=== PATIENT | female | born 1975 | race Caucasian/White ===

== ENCOUNTER 2017-07-13 13:55 | Emergency (ER) | payer OTHER ==
[2017-07-13 14:01] VITALS: BMI 36.6
--- NOTE | 2017-07-13 14:09 | PDOC ---
History of Present Illness - General History Source: Patient Exam Limitations: No Limitations - History of Present Illness Initial Comments: 07/13/17 14:16 The patient is a 41 year old female, with a significant past medical history of asthma and anemia, who presents to the emergency department with headache, dizziness, blurry vision and nausea for about 2 weeks. The patient reports her headache has been getting progressively worse since its onset. She reports her headache is localized mostly on the right side of her head, and often made worse in the morning. She reports her headache often inhibits her from daily activities, like working. She also has complaints of bilateral flank pain and back pain. She reports her back pain is often made worse when she bends down or with much activity. She notes having similar symptoms in the past, which seemed to resolve with steroids. She denies recent fevers, chills. She denies recent vomit, diarrhea or constipation. Allergies: NKA Past surgical history: Tubal ligation Social history: Nonsmoker. Denies EtOH use and recreational drug use. <Tiburcio Bear - Last Filed: 07/13/17 14:22> <Donna Valente - Last Filed: 07/13/17 20:54> - General Chief Complaint: Headache Stated Complaint: HEADACHE Time Seen by Provider: 07/13/17 14:09 Past History <Tiburcio Bear - Last Filed: 07/13/17 14:22> - Past Medical History Anemia: Yes COPD: No - Suicide/Smoking/Psychosocial Hx Smoking History: Never smoked Have you smoked in the past 12 months: No Information on smoking cessation initiated: No Hx Alcohol Use: No Drug/Substance Use Hx: No Substance Use Type: None <Donna Valente - Last Filed: 07/13/17 20:54> - Past Medical History Allergies/Adverse Reactions: Allergies Allergy/AdvReac Type Severity Reaction Status Date / Time No Known Allergies Allergy Verified 07/13/17 13:57 Home Medications: Ambulatory Orders Acetaminophen [Tylenol] 650 mg PO ASDIR 07/13/17 Ferrous Sulfate 325 mg PO DAILY 07/13/17 Review of Systems - Review of Systems Able to Perform ROS?: Yes Comments:: 07/13/17 14:17 GENERAL/CONSTITUTIONAL: No fever or chills. No weakness. HEAD, EYES, EARS, NOSE AND THROAT: No change in vision. No ear pain or discharge. No sore throat. CARDIOVASCULAR: No chest pain or shortness of breath. RESPIRATORY: No cough, wheezing, or hemoptysis. GASTROINTESTINAL: +nausea No vomiting, diarrhea or constipation. GENITOURINARY: No dysuria, frequency, or change in urination. MUSCULOSKELETAL: No joint or muscle swelling or pain. +back and flank pain. SKIN: No rash NEUROLOGIC: +headache and dizziness No vertigo, loss of consciousness, or change in strength/sensation. ENDOCRINE: No increased thirst. No abnormal weight change. HEMATOLOGIC/LYMPHATIC: No anemia, easy bleeding, or history of blood clots. ALLERGIC/IMMUNOLOGIC: No hives or skin allergy. <Tiburcio Bear - Last Filed: 07/13/17 14:22> *Physical Exam - Vital Signs Last Vital Signs Temp Pulse Resp BP Pulse Ox 99 F 93 H 18 134/91 99 07/13/17 13:55 07/13/17 13:55 07/13/17 13:55 07/13/17 13:55 07/13/17 13:55 - Physical Exam Comments: 07/13/17 14:22 GENERAL: Awake, alert, and fully oriented, in no acute distress HEAD: No signs of trauma EYES: PERRLA, EOMI, sclera anicteric, conjunctiva clear ENT: Auricles normal inspection, hearing grossly normal, nares patent, Tonsillar hypertrophy with exudates on the right side. . Moist mucosa NECK: Normal ROM, supple, no lymphadenopathy, JVD, or masses LUNGS: Decreased air entry bilaterally. . No wheezes, and no crackles HEART: Regular rate and rhythm, normal S1 and S2, no murmurs, rubs or gallops ABDOMEN: Soft, nontender, normoactive bowel sounds. No guarding, no rebound. No masses MUSCULOSKELETAL: No midline tenderness. No CVA tenderness. NEUROLOGICAL: Cranial nerves II through XII grossly intact. Normal speech, normal gait SKIN: Warm, Dry, normal turgor, no rashes or lesions noted. <Tiburcio Bear - Last Filed: 07/13/17 14:22> - Vital Signs Last Vital Signs Temp Pulse Resp BP Pulse Ox 99 F 93 H 18 134/91 99 07/13/17 13:55 07/13/17 13:55 07/13/17 13:55 07/13/17 13:55 07/13/17 13:55 <Donna Valente - Last Filed: 07/13/17 20:54> Medical Decision Making - Medical Decision Making CTH obtained, as patient has been having AM headaches. No acute findings. She has not had fever, chills, nuchal rigidity, and does not have any neuro deficits. Also obtained CXR as she mentioned recent respiratory symptoms. No acute findings as well. Treated with nebs, analgesics with improvement. Headache did not completely resolve, therefore gave her a dose of decadron in ED. Recommended outpatient neuro f/u. <Donna Valente - Last Filed: 07/13/17 20:54> *DC/Admit/Observation/Transfer - Attestations Scribe Attestion: 07/13/17 14:18 Documentation prepared by Tiburcio Bear, acting as medical office manager for Donna Valente MD. <Tiburcio Bear - Last Filed: 07/13/17 14:22> - Discharge Dispostion Admit: No <Donna Valente - Last Filed: 07/13/17 20:54> Diagnosis at time of Disposition: Headache Qualifiers: Headache type: unspecified Headache chronicity pattern: episodic headache Intractability: not intractable Qualified Code(s): R51 - Headache - Discharge Dispostion Disposition: HOME Condition at time of disposition: Stable - Referrals Referrals: Jt Landaverde MD [Staff Physician] - - Patient Instructions Printed Discharge Instructions: DI for Headache
[2017-07-13] MEDS ORDERED: ALBUTEROL SO4 2.5/IPRATROPIUM 0.5 INH SOL 3 ML VIAL.NEB. NEB ONE ×2 (14:24→14:25)
[2017-07-13] MEDS: ALBUTEROL SO4 2.5/IPRATROPIUM 0.5 INH SOL 3 ML VIAL.NEB. NEB SCH ×2 (14:29→14:57)
[2017-07-13 14:35] LABS: URINE APPEARANCE Clear; URINE BILIRUBIN Negative (NEGATIVE); URINE GLUCOSE (UA) Negative (NEGATIVE); URINE KETONE Negative (NEGATIVE); URINE NITRITE Negative (NEGATIVE); URINE PROTEIN Negative (NEGATIVE); URINE UROBILINOGEN 0.2 (0.2-1.0)
[2017-07-13 14:36] LABS: URINE BLOOD Trace-intact (NEGATIVE); URINE COLOR YELLOW
[2017-07-13] MEDS ORDERED: IBUPROFEN 600 MG TABLET (FP) PO ONE ×2 (14:50→14:52)
[2017-07-13 14:57] LABS: URINE WBC 0-2 (0-5)
[2017-07-13 14:58] LABS: AMORP URATES FEW /hpf (NONE SEEN); EPI CELLS MODERATE /HPF; URINE BACTERIA FEW /hpf (NEGATIVE)
[2017-07-13] MEDS ORDERED: ACETAMINOPHEN 325 MG TABLET (FP) ONE (15:53)
[2017-07-13] MEDS ORDERED: ACETAMINOPHEN 325 MG TABLET (FP) PO ONE (15:53)
[2017-07-13] MEDS ORDERED: DEXAMETHASONE SOD PHOSPHATE 10 MG/1 ML VIAL IVPUSH ONE (16:06)
[2017-07-13] MEDS ORDERED: DEXAMETHASONE SOD PHOSPHATE 10 MG/1 ML VIAL ONE (16:22)
[2017-07-13 16:36] VITALS: BP 147/85; PULSE 76; TEMP 98.2
== END 2017-07-13 16:30 | disposition home or self-care (01) ==
LOC: FER 13:55
PROC: 3E0F7GC Introduction of Other Therapeutic Substance into Respiratory Tract, Via Natural or Artificial Opening (ICD-10-PCS; principal; 2017-07-13)
PROC: 3E033GC Introduction of Other Therapeutic Substance into Peripheral Vein, Percutaneous Approach (ICD-10-PCS; 2017-07-13)
DX: R51 Headache (principal); D64.9 Anemia, unspecified
CPT/HCPCS: 70450-TC; 71046-TC; 81003; 81015; 84703; 87070; 87430; 99284-25

== ENCOUNTER 2017-07-25 00:12 | Emergency (ER) | payer OTHER ==
[2017-07-25 01:29] VITALS: BP 141/84; PULSE 105; TEMP 98.7; BMI 35.9
--- NOTE | 2017-07-25 02:20 | PDOC ---
History of Present Illness - General History Source: Patient Exam Limitations: No Limitations - History of Present Illness Initial Comments: 07/25/17 02:25 The patient is a 41 year old female with a significant PMH of asthma and past pneumonia who presents to the emergency department with cold-like symptoms including body aches, sore throat, chest pain, earache, and headache beginning approximately 1 day ago. The patient describes her headache as a tension like squeezing sensation bilaterally. The patient was evaluated for a headache on 07/[address] which was negative, but she notes this headache is different from then. She describes her cough as occasionally productive of yellow sputum which exacerbates her chest pain. The patient denies sick contacts or recent travel. She denies ear or nasal drainage. The patient denies shortness of breath, and dizziness. Denies fever, chills, nausea, vomit, diarrhea and constipation. Denies dysuria, frequency, urgency and hematuria. Allergies: NKA Past surgical history: Tubal ligation. Social history: No reported cigarette, alcohol, or drug use. PCP: Not on Staff. <Reg James - Last Filed: 07/25/17 02:29> - General History Source: Patient <DerrickEdward lu - Last Filed: 07/25/17 03:28> - General Chief Complaint: Sore Throat Stated Complaint: BODY ACHES,SORE THROAT Time Seen by Provider: 07/25/17 01:32 Past History <Reg James - Last Filed: 07/25/17 02:29> - Past Medical History Anemia: Yes COPD: No - Suicide/Smoking/Psychosocial Hx Smoking History: Never smoked Have you smoked in the past 12 months: No Information on smoking cessation initiated: No Hx Alcohol Use: No Drug/Substance Use Hx: No Substance Use Type: None <Edward Seals - Last Filed: 07/25/17 03:28> - Past Medical History Allergies/Adverse Reactions: Allergies Allergy/AdvReac Type Severity Reaction Status Date / Time No Known Allergies Allergy Verified 07/25/17 01:29 Home Medications: Ambulatory Orders Acetaminophen [Tylenol] 650 mg PO ASDIR 07/13/17 Ferrous Sulfate 325 mg PO DAILY 07/13/17 Ibuprofen 800 mg PO TID #30 tablet 07/25/17 Review of Systems - Review of Systems Able to Perform ROS?: Yes Comments:: 07/25/17 02:28 CONSTITUTIONAL: (+) Body aches. Absent: fever, chills, diaphoresis, generalized weakness, malaise, loss of appetite HEENT: (+) Sore throat. (+) Earache. Absent: rhinorrhea, nasal congestion, throat swelling, difficulty swallowing, mouth swelling, eye pain, visual Changes CARDIOVASCULAR: (+) Chest pain. Absent: syncope, palpitations, irregular heart rate, lightheadedness, peripheral edema RESPIRATORY: (+) Productive cough, yellow sputum. Absent: shortness of breath, dyspnea with exertion, orthopnea, wheezing, stridor , hemoptysis GASTROINTESTINAL: Absent: abdominal pain, abdominal distension, nausea, vomiting, diarrhea, constipation, melena, hematochezia GENITOURINARY: Absent: dysuria, frequency, urgency, hesitancy, hematuria, flank pain, genital pain MUSCULOSKELETAL: Absent: myalgia, arthralgia, joint swelling SKIN: Absent: rash, itching, pallor HEMATOLOGIC/IMMUNOLOGIC: Absent: easy bleeding, easy bruising, lymphadenopathy, frequent infections ENDOCRINE: Absent: unexplained weight gain, unexplained weight loss, heat intolerance, cold intolerance NEUROLOGIC: (+) Headache. Absent: focal weakness or paresthesias, dizziness, unsteady gait, seizure, mental status changes, bladder or bowel incontinence PSYCHIATRIC: Absent: anxiety, depression, suicidal or homicidal ideation, hallucinations. <Reg James - Last Filed: 07/25/17 02:29> *Physical Exam - Vital Signs Last Vital Signs Temp Pulse Resp BP Pulse Ox 98.7 F 105 H 20 141/84 98 07/25/17 01:17 07/25/17 01:17 07/25/17 01:17 07/25/17 01:17 07/25/17 01:17 - Physical Exam Comments: 07/25/17 02:28 GENERAL: Well developed, well nourished. Awake and alert. No acute distress. HEENT: Normocephalic, atraumatic. PERRLA, EOMI. No conjunctival pallor. Sclera are non- icteric. Moist mucous membranes. Oropharynx is clear. NECK: Supple. Full ROM. No JVD. Carotid pulses 2+ and symmetric, without bruits. No thyromegaly. No lymphadenopathy. CARDIOVASCULAR: Regular rate and rhythm. No murmurs, rubs, or gallops. Distal pulses are 2+ and symmetric. PULMONARY: (+) Scattered wheezing. No evidence of respiratory distress. No rales or rhonchi. No retractions. No conversational dyspnea. No dyspnea on exertion. ABDOMINAL: Soft. Non-tender. Non-distended. No rebound or guarding. No organomegaly. Normoactive bowel sounds. MUSCULOSKELETAL Normal range of motion at all joints. No bony deformities or tenderness. No CVA tenderness. EXTREMITIES: No cyanosis. No clubbing. No edema. No calf tenderness. SKIN: Warm and dry. Normal capillary refill. No rashes. No jaundice. NEUROLOGICAL: Alert, awake, appropriate. Cranial nerves 2-12 intact. No deficits to light touch and temperature in face, upper extremities and lower extremities. No motor deficits in the in face, upper extremities and lower extremities. Normoreflexic in the upper and lower extremities. Normal speech. Toes are downgoing bilaterally. Gait is normal without ataxia. PSYCHIATRIC: Cooperative. Good eye contact. Appropriate mood and affect. <Reg James - Last Filed: 07/25/17 02:29> - Vital Signs Last Vital Signs Temp Pulse Resp BP Pulse Ox 98.7 F 105 H 20 141/84 98 07/25/17 01:17 07/25/17 01:17 07/25/17 01:17 07/25/17 01:17 07/25/17 01:17 <Edward Seals - Last Filed: 07/25/17 03:28> *DC/Admit/Observation/Transfer - Attestations Scribe Attestion: 07/25/17 02:29 Documentation prepared by Reg James, acting as medical lab tech instructor for Edward Seals DO. <Reg James - Last Filed: 07/25/17 02:29> - Discharge Dispostion Admit: No <Edward Seals - Last Filed: 07/25/17 03:28> Diagnosis at time of Disposition: Viral illness - Discharge Dispostion Disposition: HOME Condition at time of disposition: Stable - Prescriptions Prescriptions: Ibuprofen 800 mg PO TID #30 tablet - Referrals Referrals: STAFF,NOT ON [Primary Care Provider] - Caridad Brice MD [Staff Physician] - - Patient Instructions Printed Discharge Instructions: DI for Viral Syndrome Additional Instructions: Take Motrin for pain and fever as directed. Follow up with your doctor as needed. All studies return to be negative. Print Language: DIVEHI - Post Discharge Activity Forms/Work/School Notes: Back to Work
[2017-07-25] MEDS ORDERED: ALBUTEROL SO4 2.5/IPRATROPIUM 0.5 INH SOL 3 ML VIAL.NEB. NEB STA (02:21)
== END 2017-07-25 03:34 | disposition home or self-care (01) ==
LOC: SUPCPDRO 00:12 → JER 00:12
PROC: 3E0F7GC Introduction of Other Therapeutic Substance into Respiratory Tract, Via Natural or Artificial Opening (ICD-10-PCS; principal; 2017-07-25)
DX: B34.9 Viral infection, unspecified (principal)
CPT/HCPCS: 87070; 87430; 87804; 94640; 99281-25

== ENCOUNTER 2018-04-16 21:40 | Emergency (ER) | payer OTHER ==
[2018-04-16 21:55] VITALS: BP 142/95; PULSE 92; TEMP 98.7; BMI 40.8
--- NOTE | 2018-04-16 21:57 | PDOC ---
Rapid Medical Evaluation Time Seen by Provider: 04/16/18 21:52 Medical Evaluation: Allergies Allergy/AdvReac Type Severity Reaction Status Date / Time No Known Allergies Allergy Verified 07/25/17 01:29 04/16/18 21:52 The patient complaints of: difficulty breathing, cough, wheeze, hx asthma, no relief with inhaler On brief exam: exp wheeze at [place] bases The patient ordered for: prednisone, duoneb, cxr The patient will proceed to the ED Discharge Disposition - Diagnosis Wheeze - Referrals Referrals: Julien Hampton MD [Primary Care Provider] - - Patient Instructions - Post Discharge Activity
[2018-04-16] MEDS ORDERED: predniSONE 20 MG TABLET (UD) PO ONE (21:58)
[2018-04-16] MEDS ORDERED: ALBUTEROL SO4 2.5/IPRATROPIUM 0.5 INH SOL 3 ML VIAL.NEB. NEB ONE (21:58)
[2018-04-16] MEDS ORDERED: predniSONE 20 MG TABLET (UD) ONE (22:57)
--- NOTE | 2018-04-16 23:00 | PDOC ---
History of Present Illness - General Chief Complaint: Asthma Stated Complaint: DIFF. BREATHING Time Seen by Provider: 04/16/18 21:52 History Source: Patient Exam Limitations: No Limitations - History of Present Illness Initial Comments: 04/16/18 23:01 42 -year-old female with history of asthma presents to ED with complaints of wheezing, cough and shortness of breath during coughing episodes for the past day. Patient states has used her inhaler with minimal improvement. Patient denies recent travel, recent illness, fever, chest pain, recent sick contacts. Timing/Duration: reports: yesterday Severity: reports: mild Possible Cause: Yes: occasional episodes Modifying Factors: improves with: coughing Associated Symptoms: reports: cough, shortness of breath, wheezing Past History - Travel Traveled outside of the country in the last 30 days: No - Past Medical History Allergies/Adverse Reactions: Allergies Allergy/AdvReac Type Severity Reaction Status Date / Time No Known Allergies Allergy Verified 04/16/18 21:56 Home Medications: Ambulatory Orders Acetaminophen [Tylenol] 650 mg PO ASDIR 07/13/17 Ferrous Sulfate 325 mg PO DAILY 07/13/17 Ibuprofen 800 mg PO TID #30 tablet 07/25/17 Anemia: Yes Asthma: Yes COPD: No - Suicide/Smoking/Psychosocial Hx Smoking History: Never smoked Have you smoked in the past 12 months: No Hx Alcohol Use: No Drug/Substance Use Hx: No Substance Use Type: None Patient Lives Alone: No Lives with/in: spouse/SO Review of Systems - Review of Systems Able to Perform ROS?: No Constitutional: Yes: Symptoms Reported HEENTM: No: Symptoms Reported Respiratory: Yes: Cough, Wheezing Cardiac (ROS): No: Symptoms Reported ABD/GI: No: Symptoms Reported : No: Symptoms Reported Musculoskeletal: No: Symptoms Reported Integumentary: No: Symptoms Reported Neurological: No: Symptoms reported Hematologic/Lymphatic: No: Symptoms Reported *Physical Exam - Vital Signs Last Vital Signs Temp Pulse Resp BP Pulse Ox 98.7 F 92 H 18 142/95 98 04/16/18 21:44 04/16/18 21:44 04/16/18 21:44 04/16/18 21:44 04/16/18 21:44 - Physical Exam General Appearance: Yes: Nourished, Appropriately Dressed. No: Apparent Distress HEENT: negative: Pale Conjunctivae Neck: positive: Supple Respiratory/Chest: positive: Wheezing (expiratory wheeze to [place] bases). negative: Chest Tender, Respiratory Distress, Accessory Muscle Use Cardiovascular: positive: Regular Rhythm, Regular Rate. negative: Murmur Gastrointestinal/Abdominal: positive: Soft. negative: Tenderness Integumentary: positive: Normal Color, Moist Neurologic: positive: Normal Mood/Affect (speaking full sentences), Motor Strength 5/5 (ambulatory) ED Treatment Course - RADIOLOGY Radiology Studies Ordered: Category Date Time Status CHEST X-RAY PORTABLE* [RAD] Stat Radiology 04/16/18 21:58 Ordered - Medications Given in the ED: ED Medications Discontinued Medications Generic Name Dose Route Start Last Admin Trade Name Freq PRN Reason Stop Dose Admin Prednisone 60 mg 04/16/18 21:58 04/16/18 22:58 Deltasone - PO 04/16/18 21:59 60 mg ONCE ONE Administration Medical Decision Making - Medical Decision Making 04/16/18 23:04 patient here with wheezing cough or shortness of breath during coughing episodes. Patient on exam with expiratory wheezing . For DuoNeb, prednisone, and chest x-ray. 04/16/18 23:18 cxr -. Discharge home with prednisone and has an albuterol inhaler Lungs clear upon ed disharge *DC/Admit/Observation/Transfer Diagnosis at time of Disposition: Wheeze, Asthma - Discharge Dispostion Disposition: HOME Condition at time of disposition: Improved - Referrals Referrals: Julien Hampton MD [Primary Care Provider] - - Patient Instructions Printed Discharge Instructions: Asthma -- Adult Additional Instructions: Take prednisone starting tomorrow since you were given your first dose here in the ER. Please use inhaler as needed. Please avoid excessive outdoor exposure, as the humidity may make the symptoms worse - Post Discharge Activity
== END 2018-04-16 23:23 | disposition home or self-care (01) ==
LOC: JERFT 21:40
DX: J45.990 Exercise induced bronchospasm (principal); D64.9 Anemia, unspecified
CPT/HCPCS: 71046-TC-FY; 99281-25

== ENCOUNTER 2018-10-15 22:51 | Emergency (ER) | payer OTHER ==
--- NOTE | 2018-10-15 23:00 | PDOC ---
History of Present Illness - General Stated Complaint: STOMACE PAIN/NAUSEA Time Seen by Provider: 10/15/18 22:59 History Source: Patient - History of Present Illness Initial Comments: 10/15/18 23:25 The patient is a 42 year old female with no significant PMH of asthma (no hospitalizations, no intubations)who presents to our ED c/o 1 day h/o abdominal pain and body aches. Abdominal pain is diffuse, aching, with no identifiable triggering or relieving factors. Solo episode of NBNB emesis yesterday. No fevers/chills. Last BM earlier today and was watery. Last PO intake earlier this evening. No recent travel or sick contacts. The patient denies chest pain, shortness of breath, lightheadedness, palpitations. NKDA Surgical: Hysterectomy, C/S PMD: Dr. Hampton As per EMR patient last evaluated in our ED in 2018 for wheezing and shortness of breath, discharged home with supportive care. Past History - Past Medical History Allergies/Adverse Reactions: Allergies Allergy/AdvReac Type Severity Reaction Status Date / Time No Known Allergies Allergy Verified 10/15/18 23:07 Home Medications: Ambulatory Orders Acetaminophen [Tylenol] 650 mg PO ASDIR 07/13/17 Ferrous Sulfate 325 mg PO DAILY 07/13/17 Ibuprofen 800 mg PO TID #30 tablet 07/25/17 predniSONE [Deltasone -] 40 mg PO DAILY #6 tablet 04/16/18 Anemia: Yes Asthma: Yes COPD: No - Suicide/Smoking/Psychosocial Hx Smoking History: Never smoked Have you smoked in the past 12 months: No Hx Alcohol Use: No Drug/Substance Use Hx: No Substance Use Type: None Review of Systems - Review of Systems Constitutional: No: Chills, Fever HEENTM: No: Recent change in vision Respiratory: No: Shortness of Breath, Wheezing Cardiac (ROS): No: Chest Pain, Lightheadedness, Palpitations, Syncope ABD/GI: Yes: Vomiting, Abdominal cramping. No: Constipated, Diarrhea, Nausea : No: Burning, Dysuria *Physical Exam - Physical Exam General Appearance: Yes: Nourished, Obese HEENT: positive: Normal Voice, Hearing Grossly Normal Neck: positive: Trachea midline, Supple Respiratory/Chest: positive: Lungs Clear, Normal Breath Sounds Cardiovascular: positive: S1, S2. negative: Edema, JVD Gastrointestinal/Abdominal: positive: Normal Bowel Sounds, Soft. negative: Distended, Guarding, Rebound, Tenderness Musculoskeletal: negative: CVA Tenderness (R), CVA Tenderness (L) Extremity: positive: Normal Capillary Refill, Normal Inspection Integumentary: positive: Normal Color, Dry, Warm Medical Decision Making - Medical Decision Making 10/15/18 23:33 42 year old female with abdominal pain. Mildly tachycardic (HR 106) @ presentation, repeat HR 96 @ bedside other VS unremarkable. Tender belly on palpation, non-tender with stethescope exam. Will give IV fluids, GI cocktail to treat for likely gastritis or gastroenteritis. Low clinical suspicion for acute abdomen. Reassess. 10/15/18 23:44 Patient to be signed out to Dr. Leon (Resident) and Dr. López (Attending) for further management. *DC/Admit/Observation/Transfer Diagnosis at time of Disposition: Abdominal pain - Discharge Dispostion Disposition: HOME Condition at time of disposition: Good - Referrals Referrals: Julien Hampton MD [Primary Care Provider] - - Patient Instructions Printed Discharge Instructions: DI for Abdominal Pain-Adult Additional Instructions: You were evaluated today for abdominal pain. At this time you are safe for discharge home. Follow up with your primary care doctor in the next 3 days. Your care is not complete until you are evaluated by Dr. Hampton. Return to the Emergency Department for any new/worsening/concerning symptoms. - Post Discharge Activity
--- NOTE | 2018-10-15 23:11 | PDOC ---
Attending Attestation - HPI HPI: 10/15/18 23:21 The patient is a 42 year old female, with a significant past medical history of asthma, who presents to the emergency department with, abdominal pain with associated nausea and vomiting. She denies recent antibiotic usage. She denies recent fevers, chills, headache or dizziness. She denies recent diarrhea or constipation. She denies recent dysuria, frequency, urgency or hematuria. She denies recent chest pain or shortness of breath. Allergies: NKDA Primary Care Physician: Dr. Hampton <Blaire Ga - Last Filed: 10/15/18 23:18> - Resident Resident Name: Celina Carroll - ED Attending Attestation I have performed the following: I have examined & evaluated the patient, The case was reviewed & discussed with the resident, I agree w/resident's findings & plan, Exceptions are as noted - HPI HPI: 10/16/18 02:44 Endorses one episode of non-bloody loose stool - Physicial Exam PE: 10/16/18 02:43 NAD, AOx3 Abd soft, nt, nd, no guarding, no rebound - Medical Decision Making 10/16/18 02:44 gastritis, gastroenteritis, acute abdomen less likely labs unremarkable symptoms resolved with tx dc with return precautions <Gregorio López - Last Filed: 10/16/18 02:45> Attestations - Attestations 10/15/18 23:22 Documentation prepared by Blaire Ga, acting as medical intern for Gregroio López MD. <Blaire Ga - Last Filed: 10/15/18 23:18>
[2018-10-15 23:12] VITALS: BP 128/90; PULSE 106; TEMP 98.4; BMI 36.3
[2018-10-15] MEDS ORDERED: ACETAMINOPHEN 500 MG TABLET (FP) PO ONE (23:23)
[2018-10-15] MEDS ORDERED: MAG HYDROX/AL HYDROX/SIMETH 30 ML UNIT-DOSE CUP PO ONE (23:23)
[2018-10-15] MEDS ORDERED: LIDOCAINE VISCOUS 2% ORAL/TOP 20 ML UNIT-DOSE CUP MM ONE (23:23)
[2018-10-15] MEDS ORDERED: SODIUM CHLORIDE 0.9% 500 ML INFUS.BAG IV ONE (23:27)
[2018-10-15] MEDS ORDERED: FAMOTIDINE 20 MG/50 ML IVPB 20 MG/50 ML MG IVPB ONE ×2 (23:27→23:53)
[2018-10-15] MEDS ORDERED: MAG HYDROX/AL HYDROX/SIMETH 30 ML UNIT-DOSE CUP ONE (23:52)
[2018-10-15] MEDS ORDERED: LIDOCAINE VISCOUS 2% ORAL/TOP 20 ML UNIT-DOSE CUP ONE (23:52)
[2018-10-16] MEDS ORDERED: METOCLOPRAMIDE HCL INJECTION 10 MG/2 ML VIAL IVPUSH ONE (00:37)
[2018-10-16 00:52] LABS: BASO % 0.2 % (0-2.0); EOS % 0.5 % (0-4.5); HEMATOCRIT 37.2 % (32.4-45.2); HEMOGLOBIN 12.2 GM/dL (10.7-15.3); MCH 26.2 pg (25.7-33.7); MCHC 32.9 g/dl (32.0-36.0); MEAN CELL VOLUME 79.6 fl (80-96); MEAN PLT VOLUME 9.2 fl (7.5-11.1); MONO % 7.4 % (3.8-10.2); NEUT % 80.9 % (42.8-82.8); PLATELET COUNT 232 K/MM3 (134-434); RBC 4.67 M/mm3 (3.60-5.2); RDW 15.7 % (11.6-15.6); WHITE BLOOD COUNT 8.4 K/mm3 (4.0-10.0)
[2018-10-16] MEDS ORDERED: METOCLOPRAMIDE HCL INJECTION 10 MG/2 ML VIAL ONE (01:02)
[2018-10-16 01:22] LABS: ALBUMIN 3.2 g/dl (3.4-5.0); ALK PHOS 99 U/L (45-117); ANION GAP 6 MMOL/L (8-16); BILIRUBIN,TOTAL 0.2 mg/dL (0.2-1); BLOOD UREA NITROGEN 10 mg/dL (7-18); CALCIUM 7.7 mg/dL (8.5-10.1); CHLORIDE 105 mmol/L (98-107); CO2 26 mmol/L (21-32); CREATININE 0.6 mg/dL (0.55-1.3); GLUCOSE,RANDOM 87 mg/dL (74-106); POTASSIUM 3.6 mmol/L (3.5-5.1); SGOT/AST 33 U/L (15-37); SGPT/ALT 97 U/L (13-61); SODIUM 137 mmol/L (136-145); TOT PROT 6.9 g/dl (6.4-8.2)
--- NOTE | 2018-10-16 01:34 | PDOC ---
*Physical Exam - Vital Signs Last Vital Signs Temp Pulse Resp BP Pulse Ox 98.4 F 106 H 17 128/90 98 10/15/18 23:03 10/15/18 23:03 10/15/18 23:03 10/15/18 23:03 10/15/18 23:03 ED Treatment Course - LABORATORY CBC & Chemistry Diagram: 10/16/18 00:41 10/16/18 00:41 - ADDITIONAL ORDERS Additional order review: Laboratory Results 10/16/18 00:41 Sodium 137 Potassium 3.6 Chloride 105 Carbon Dioxide 26 Anion Gap 6 L BUN 10 Creatinine 0.6 Creat Clearance w eGFR 110.72 Random Glucose 87 Calcium 7.7 L Total Bilirubin 0.2 AST 33 ALT 97 H Alkaline Phosphatase 99 Total Protein 6.9 Albumin 3.2 L 10/16/18 00:41 RBC 4.67 MCV 79.6 L MCHC 32.9 RDW 15.7 H D MPV 9.2 Neutrophils % 80.9 D Lymphocytes % 11.0 D Monocytes % 7.4 Eosinophils % 0.5 Basophils % 0.2 - Medications Given in the ED: ED Medications Discontinued Medications Generic Name Dose Route Start Last Admin Trade Name Freq PRN Reason Stop Dose Admin Acetaminophen 975 mg 10/15/18 23:23 10/15/18 23:58 Tylenol - PO 10/15/18 23:24 Not Given ONCE ONE Al Hydroxide/Mg Hydroxide 30 ml 10/15/18 23:23 10/15/18 23:57 Mylanta Oral Suspension - PO 10/15/18 23:24 30 ml ONCE ONE Administration Famotidine/Sodium Chloride 20 mg in 50 mls @ 100 mls/hr 10/15/18 23:27 23:57 Pepcid 20 Mg Premixed Ivpb - IVPB 10/15/18 23:56 100 mls/hr ONCE ONE Administration Lidocaine HCl 60 ml 10/15/18 23:23 10/15/18 23:57 Xylocaine 2% Viscous Oral - MM 10/15/18 23:24 60 ml ONCE ONE Administration Metoclopramide HCl 10 mg 10/16/18 00:37 10/16/18 01:07 Reglan Injection - IVPUSH 10/16/18 00:38 10 mg ONCE ONE Administration Sodium Chloride 1,000 ml 10/15/18 23:27 10/15/18 23:48 Normal Saline - IV 10/15/18 23:28 1,000 ml ONCE ONE Administration Medical Decision Making - Medical Decision Making 10/16/18 02:16 Patient feels better after GI cocktail. Wishes to go home with prescription and follow up. *DC/Admit/Observation/Transfer Diagnosis at time of Disposition: Abdominal pain - Discharge Dispostion Disposition: HOME Condition at time of disposition: Good - Prescriptions Prescriptions: Metoclopramide HCl [Reglan] 10 mg PO DAILY #10 tablet Omeprazole 20 mg PO DAILY #10 tablet.dr - Referrals Referrals: Julien Hampton MD [Primary Care Provider] - - Patient Instructions Printed Discharge Instructions: DI for Abdominal Pain-Adult Additional Instructions: You were evaluated today for abdominal pain. At this time you are safe for discharge home. Follow up with your primary care doctor in the next 3 days. Your care is not complete until you are evaluated by Dr. Hampton. Return to the Emergency Department for any new/worsening/concerning symptoms. - Post Discharge Activity
== END 2018-10-16 02:32 | disposition home or self-care (01) ==
LOC: JER 22:51
PROC: 3E033GC Introduction of Other Therapeutic Substance into Peripheral Vein, Percutaneous Approach (ICD-10-PCS; principal; 2018-10-15)
PROC: 3E033GC Introduction of Other Therapeutic Substance into Peripheral Vein, Percutaneous Approach (ICD-10-PCS; 2018-10-15)
DX: R10.84 Generalized abdominal pain (principal)
CPT/HCPCS: 36415; 80053; 85025; 99282-25